=== PATIENT | female | born 1955 | race Caucasian/White ===

== ENCOUNTER 2018-07-05 03:00 | Outpatient (CLI) ==
[2018-07-05 03:19] VITALS: BMI 23.0
== END 2018-07-05 03:05 | disposition critical access hospital (66) ==
LOC: AMBL 03:00
PROVIDERS: ATTEND Internal Medicine Geriatric Medicine
DX: R55 Syncope and collapse (principal); S09.92XA Unspecified injury of nose, initial encounter; R04.0 Epistaxis; W19.XXXA Unspecified fall, initial encounter; R11.0 Nausea; R53.1 Weakness; I10 Essential (primary) hypertension

== ENCOUNTER 2018-07-05 03:12 | Emergency (ER) ==
[2018-07-05 03:19] VITALS: TEMP 99.3; BMI 23.0
--- NOTE | 2018-07-05 04:28 | CT ---
EXAM: CT head without contrast 07/05/2018. Sagittal and coronal reformatted images obtained HISTORY: Trauma COMPARISON: None. FINDINGS: There is no evidence of intracranial hemorrhage. The midline is maintained. There is no h ydrocephalus. Generalized atrophy and chronic small vessel ischemic changes. No cerebellar tonsilla r ectopia. Evaluation of the calvarium shows no fracture. The mastoid air cells are normally pneuma tized. IMPRESSION: No acute intracranial abnormality.
--- NOTE | 2018-07-05 04:42 | CT ---
EXAM: CT maxillofacial without intravenous contrast 07/05/2018. Sagittal and coronal reformatted im ages obtained HISTORY: Trauma COMPARISON: None. FINDINGS: No gross soft tissue abnormality.. There is no acute osseous abnormality of the facial marshall leanna. The orbits, zygoma, nasal bones, maxilla and mandible appear intact. No fracture or dislocation The paranasal sinuses are normally aerated. Mastoid air cells are normal size. IMPRESSION: No acute process.
--- NOTE | 2018-07-05 04:51 | CT ---
EXAM: CT cervical spine without intravenous contrast 06/07/2018. Sagittal and coronal reformatted i mages obtained HISTORY: Fall COMPARISON: None. FINDINGS: Normal anatomic alignment is maintained. Vertebral bodies appear intact. The facet joint s align normally. Multilevel chronic degenerative disc disease. Chronic hypertrophic facet arthropathy No acute fracture or subluxation at any level. IMPRESSION: Degenerative findings of the cervical spine. No acute post traumatic osseous abnormalit y.
--- NOTE | 2018-07-05 05:12 | CT ---
EXAM: CT abdomen pelvis without intravenous contrast 06/07/2018. Sagittal and coronal reformatted i mages obtained HISTORY: Abdominal pain. Syncope COMPARISON: 03/25/2015 FINDINGS: Bibasilar atelectasis. The liver and gallbladder show no acute abnormality. The adrenal glands and kidneys show no acute abnormality. There is no hydronephrosis. No kidney sto leanna. The spleen and pancreas show no acute abnormality. Questionable mucosal prominence within the left upper quadrant small bowel. This could be within nor mal limits. Enteritis process is not excluded. There are no findings of small bowel obstruction. N ormal appendix. Unremarkable urinary bladder. No free air or free fluid. Prominent quantity of sto ol through the distal colon. Correlate for constipation/fecal stasis. IMPRESSION: 1. Bibasilar atelectasis. 2. No urinary or bowel obstruction and normal appendix 3. Questionable mucosal thickening of proximal small bowel within the left upper quadrant. Enteriti s is not excluded. 4. Prominent quantity of stool in the distal colon. Correlate for constipation/fecal stasis. 5. Technically limited examination due to the lack of intravenous contrast.
--- NOTE | 2018-07-05 05:20 | ED.PDOC ---
General ED Provider: Dr. RICO KRAFT-ER Chief Complaint: Syncope Stated Complaint: she passed out on the way to the bathroom Time Seen by Physician: 03:15 Mode of Arrival: Ambulance Information Source: Patient, EMT Exam Limitations: No limitations Primary Care Provider: TEJA GASPAR Nursing and Triage Documentation Reviewed and Agree: Yes Does patient meet sepsis criteria?: No System Inflammatory Response Syndrome: Not Applicable Sepsis Protocol: For patient's 13 years and over: Temp is 96.8 and below OR 101 and greater Pulse >90 BPM Resp >20/minute Acutely Altered Mental Status Are patient's symptoms suggestive of a new infection, such as: -Pneumonia -Skin, Soft Tissue -Endocarditis -UTI -Bone, Joint Infection -Implantable Device -Acute Abdominal Infection -Wound Infection -Meningitis -Blood Stream Catheter Infection -Unknown Neurological Complaint Exam - Syncope/Near Syncope Complaint/Exam Onset/Duration: seconds Symptoms Are: Resolved Episodes Lasting: Seconds Number of Episodes: 1 Episodes Witnessed: Yes Associated Head Trauma: Yes Aggravating: Position change Alleviating: Reports: Spontaneous resolution Associated Signs and Symptoms: Reports: Recent head trauma JVD Present: No Carotid Bruit Present: No Rectal Heme Positive: No Nystagmus Present: No Gag Reflex Present: Yes Meningeal Signs Positive: No Focal Weakness: Present: None Focal Sensory Loss: Present: None Gait: Normal Babinski Sign: Negative Right, Negative Left Heel to Toe Normal: No Colby-Hallpike Test Positive: No Differential Diagnoses: Vasovagal Episode Quality Indicator For Non-Traumatic Chest Pain/Syncope: EKG Performed Review of Systems - Review Of Systems Constitutional: Reports: No symptoms Eyes: Reports: No symptoms Ears, Nose, Mouth, Throat: Reports: No symptoms Respiratory: Reports: No symptoms Cardiac: Reports: No symptoms GI: Reports: No symptoms : Reports: No symptoms Musculoskeletal: Reports: No symptoms Skin: Reports: No symptoms Neurological: Reports: No symptoms Endocrine: Reports: No symptoms Hematologic/Lymphatic: Reports: No symptoms All Other Systems: Reviewed and Negative Past Medical History - Past Medical History Previously Healthy: Yes Endocrine: Reports: None Cardiovascular: Reports: Hypertension Respiratory: Reports: None Hematological: Reports: None Gastrointestinal: Reports: None Genitourinary: Reports: Kidney stones Neuro/Psych: Reports: Depression Musculoskeletal: Reports: None Cancer: Reports: None Last Menstrual Period: UNKNOWN - Surgical History General Surgical History: Reports: Unknown - Family History Family History: Reports: Unknown - Social History Smoking Status: Former smoker Hx Substance Use: No Alcohol Screening: Occasionally - Immunizations Tetanus Shot up to Date: (UNKNOWN) Physical Exam - Physical Exam Appearance: Well-appearing, No pain distress, Well-nourished Eyes: TALAT, EOMI, Conjunctiva clear ENT: Ears normal, Nose normal, Oropharynx normal Neck: Supple Respiratory: Airway patent, Breath sounds clear, Breath sounds equal, Respirations nonlabored Cardiovascular: RRR, Pulses normal, No rub, No murmur GI/: Soft, Nontender, No masses, Bowel sounds normal, No Organomegaly Musculoskeletal: Normal strength, ROM intact, No edema, No calf tenderness Skin: Warm, Dry, Normal color Neurological: Sensation intact Psychiatric: Affect appropriate, Mood appropriate Interpretation - Radiology Interpretation Radiology Interpretation By: Radiologist Radiology Results: Negative Exam Interpreted: CT Scan - EKG Interpretation Time of EKG #1: 05:20 Rate: Normal Rhythm: Sinus Ectopy: None [place]: NL ST Segment: Normal Interpretation: nsr Critical Care Note - Critical Care Note Total Time (mins): 0 Course - Course Hematology/Chemistry: 07/05/18 03:40 07/05/18 03:40 Orders, Labs, Meds: Lab Review 07/05/18 07/05/18 07/05/18 03:40 03:40 04:30 WBC 10.70 H RBC 4.70 Hgb 14.1 Hct 43.5 MCV 92.6 MCH 30.0 MCHC 32.4 RDW Coeff of Ty 12.7 Plt Count 270 Immature Gran % (Auto) 0.3 Neut % (Auto) 90.4 Lymph % (Auto) 4.4 L [place] % (Auto) 3.5 Eos % (Auto) 1.1 Baso % (Auto) 0.3 Immature Gran # (Auto) 0.0 Neut # (Auto) 9.7 H Lymph # (Auto) 0.5 L [place] # (Auto) 0.4 Eos # (Auto) 0.1 Baso # (Auto) 0.0 Sodium 138.4 Potassium 3.98 Chloride 102.5 Carbon Dioxide 27.6 Anion Gap 12.28 BUN 27.9 H Creatinine 0.85 Estimated GFR (MDRD) 68.00 BUN/Creatinine Ratio 32.82 Glucose 160.5 H Calcium 9.16 Total Bilirubin 0.39 AST 35.8 ALT 22.7 Alkaline Phosphatase 66.1 Total Creatine Kinase 878.7 H CK-MB (CK-2) 2.080 CK-MB (CK-2) % 0.2300 Troponin I < 0.012 Total Protein 7.10 Albumin 3.96 Globulin 3.14 Albumin/Globulin Ratio 1.26 Amylase 71.1 Urine Color Yellow Urine Clarity Clear Urine pH 6.0 Ur Specific [place] 1.025 Urine Protein Negative Urine Glucose (UA) Negative Urine Ketones Negative Urine Blood 2+ Urine Nitrite Negative Urine Bilirubin Negative Urine Urobilinogen 0.2 Ur Leukocyte Esterase Negative Urine Microscopic RBC 5-10 Ur Squamous Epith Cells 0-2 Urine Mucus Trace Orders Category Date Time Status EKG-(ED ONLY) Stat CARDIO 07/05/18 03:23 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 07/05/18 03:32 Active Orthostatic [ED ORTHOSTATIC VITAL SIGNS] .ONCE EMERGENCY 07/05/18 03:34 Active AMYLASE Stat LAB 07/05/18 03:40 Completed CBC W/ AUTO DIFF Stat LAB 07/05/18 03:40 Completed COMPREHENSIVE METABOLIC PANEL Stat LAB 07/05/18 03:40 Completed CREATINE KINASE Stat LAB 07/05/18 03:40 Completed TROPONIN I Stat LAB 07/05/18 03:40 Completed URINALYSIS C & S IF INDICATED Stat LAB 07/05/18 04:[address] ABDOMEN/PELVIS WO CONTRAST Stat RADS 07/05/18 03:[address] CERVICAL SPINE W/O CONTRAST Stat RADS 07/05/18 03:[address] HEAD W/O CONTRAST Stat RADS 07/05/18 03:[address] MAXILLOFACIAL W/O CONTRAST Stat RADS 07/05/18 03:32 Completed CXR [CHEST, 1V AP ONLY] Stat RADS 07/05/18 03:34 Taken Vital Signs: Temp Pulse Resp BP Pulse Ox 07/05/18 03:43 97 H 118/68 07/05/18 03:42 89 134/65 07/05/18 03:41 88 111/71 07/05/18 03:13 99.3 F 83 16 130/76 96 Departure - Departure Time of Disposition: 05:22 Disposition: HOME SELF-CARE Discharge Problem: Syncope Instructions: Syncope (ED) Condition: Good Pt referred to PMD for follow-up: Yes IPMP verified?: No Additional Instructions: f/u with pcp this week for recheck Allergies/Adverse Reactions: Allergies No Known Allergies Allergy (Verified 07/05/18 03:19) Home Medications: Ambulatory Orders Hydrochlorothiazide 12.5 mg PO DAILY 03/25/15 Irbesartan [Avapro] 150 mg PO DAILY 03/25/15 Nefazodone HCl 50 mg PO BID 03/25/15 Disposition Discussed With: Patient, Family
[2018-07-05 05:25] VITALS: BP 118/64
--- NOTE | 2018-07-05 05:33 | DI ---
EXAM: Chest, single view 07/05/2018 HISTORY: Syncope COMPARISON: None. FINDINGS / IMPRESSION: Cardiomediastinal countours appear within normal limits. There is no focal p ulmonary consolidation. No pleural effusion or pneumothorax. No acute cardiopulmonary process.
== END 2018-07-05 05:28 | disposition home or self-care (01) ==
LOC: ED 03:12
DX: R55 Syncope and collapse (principal); I10 Essential (primary) hypertension; W19.XXXA Unspecified fall, initial encounter; S09.92XA Unspecified injury of nose, initial encounter; R04.0 Epistaxis; R11.0 Nausea; R53.1 Weakness
CPT/HCPCS: 36415; 80053; 81001; 82150; 82550; 82553; 84484; 85025; 93005; 93010; 99284